=== PATIENT | female | born 1955 | race Caucasian/White ===

== ENCOUNTER 2016-08-02 07:14 | Inpatient (IN) | payer OTHER ==
[2016-08-02] MEDS ORDERED: ONDANSETRON 4 MG/2ML 2 ML VIAL IV ONE (07:15)
[2016-08-02] MEDS ORDERED: FAMOTIDINE 20 MG TABLET PO ONE (07:15)
[2016-08-02] MEDS ORDERED: TRAMADOL HCL 50 MG TABLET PO ONE (07:15)
[2016-08-02] MEDS ORDERED: CELECOXIB 200 MG CAPSULE PO ONE (07:15)
[2016-08-02] MEDS ORDERED: GABAPENTIN 600 MG TABLET PO ONE (07:15)
[2016-08-02] MEDS ORDERED: CLONIDINE HCL 0.1 MG/24 HR (7 DAY PATCH) TD SCH (07:15)
[2016-08-02] MEDS ORDERED: OXYCODONE HCL 10 MG TAB.SR PO ONE ×2 (07:15→08:01)
[2016-08-02] MEDS ORDERED: CEFAZOLIN SODIUM 2 GRAM PREMIX 100 ML IV PRN (07:15)
[2016-08-02] MEDS ORDERED: IV START KIT ONE (07:22)
[2016-08-02] MEDS ORDERED: LACTATED RINGERS 1,000 ML ONE ×2 (07:22→08:41)
[2016-08-02] MEDS ORDERED: GABAPENTIN 600 MG TABLET ONE (08:02)
[2016-08-02] MEDS ORDERED: CLONIDINE HCL 0.1 MG/24 HR (7 DAY PATCH) TD ONE (08:02)
[2016-08-02] MEDS ORDERED: CELECOXIB 200 MG CAPSULE ONE (08:02)
[2016-08-02] MEDS ORDERED: ONDANSETRON 4 MG/2ML 2 ML VIAL ONE (08:02)
[2016-08-02] MEDS ORDERED: FAMOTIDINE 20 MG TABLET ONE (08:02)
[2016-08-02] MEDS ORDERED: TRAMADOL HCL 50 MG TABLET ONE (08:05)
[2016-08-02] MEDS ORDERED: PROPOFOL 20 ML IV ONE ×3 (08:56)
[2016-08-02] MEDS ORDERED: FENTANYL 100 MCG/2 ML VIAL ONE (08:57)
[2016-08-02] MEDS ORDERED: MIDAZOLAM HCL 5 MG/5 ML VIAL ONE (08:57)
[2016-08-02] MEDS ORDERED: BUPIVACAINE 0.25% (MDV) 20 ML in SODIUM CHLORIDE 0.9% FLUSH 20 ML IF PRN (09:10)
[2016-08-02] MEDS ORDERED: TRANEXAMIC ACID 1,000 MG in SODIUM CHLORIDE 0.9% 100 ML IV PRN (09:10)
[2016-08-02] MEDS ORDERED: BUPIVACAINE 0.25% (MDV) 24 ML, MORPHINE SULFATE 8 MG, EPINEPHRINE 0.3 MG in SODIUM CHLO... IF PRN (09:10)
[2016-08-02] MEDS ORDERED: POLYMYXIN B SULFATE 500,000 UNITS, BACITRACIN 25,000 UNITS in SODIUM CHLORIDE 3 L IRRIG... IR PRN (09:10)
[2016-08-02] MEDS ORDERED: ROPIVACAINE 0.5% 30 ML VIAL ONE (09:18)
[2016-08-02] MEDS ORDERED: NERVE BLOCK PROCEDURAL TRAY 1 EACH ONE (09:18)
[2016-08-02] MEDS ORDERED: SPINAL PROCEDURAL TRAY 1 EACH ONE (09:18)
--- NOTE | 2016-08-02 09:39 | HP ---
DATE OF CLINIC: 07/28/2016 DEON CORTEZ : 1955 PLANNED PROCEDURE: Right Total Knee Arthroplasty DATE OF SURGERY: August 02, 2016 SURGEON: Vamshi Pedroza M.D. HISTORY OF PRESENT ILLNESS Deon Cortez is a 61 year old female. * Medication list reviewed with patient allergy list reviewed with patient. * Tried NSAIDS IBUPROFEN PRN * Tried Physical Therapy * Has not tried Injections This is a 60-year-old female who was referred over by Dr. Kaplan for complaints of right knee pain and instability. Patient has a remote history of an ACL injury, treated with a reconstruction in 2005 with an autograft tendon, and then a revision is 2006 to an allograft. She states that even since that time she has had some subjective instability in the knee, as well as some pain with increased-demand activities. She wore a brace and this seemed to help and allow her to do the things that she wanted to do. 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 She does wear a brace part of the time and says that she is some better when she wears the brace, but relates that it is just because she is very much watching her knee to make sure that nothing bad happens to it. She continues to complain of both instability, as well as some mechanical symptoms of the knee and quite a bit of pain that worsens with more activity. Part of the pain seems to be some cramping in her calf and thigh when she tries to do a lot of activity. She has been to physical therapy for just a very limited number of visits and she did some exercises at home, but felt like they were just increasing her pain and not really improving it. She has not taken any anti-inflammatories and she has not had any injections. After discussion and review of treatment options, both operative and non-operative, she has elected to proceed with surgery and presents today preoperatively. CURRENT MEDICATION * Alive Once Daily Womens 50+ Tablet 0 days, 0 refills * Fish Oil 1000 MG Capsule 1 once a day 0 days, 0 refills * Hydrocortisone 2.5 % Ointment as needed 0 days, 0 refills * Ibuprofen 600 MG Tablet three times a day prn only, 30 days, 1 refills * Sertraline HCl 100 MG Tablet TAKE ONE AND ONE-HALF TABLETS BY MOUTH EVERY DAY, 90 days, 1 refills * Synthroid 100 MCG Tablet 1 once a day, 90 days, 3 refills * Triamcinolone Acetonide 0.1 % Cream as needed 0 days, 0 refills PAST MEDICAL/SURGICAL HISTORY Reported: No recent change in medical history. Surgical / Procedural: Arthroscopy Right knee ACL reconstruction ( x2 ) 2005 & 2006. Physical Trauma: Physical trauma. Diagnoses: Hiatal hernia. Hyperlipidemia. Thyroid disorder. Osteoarthritis. Lumbago (CHRONIC). Depression Anxiety disorder NOS past medical/surgical history [use for free text]. Surgical: * Hysterectomy 2008 SOCIAL HISTORY Social history changed. Behavioral: Caffeine use. No tobacco use. Never smoked. Smoking status: Never smoker. Alcohol: Alcohol. Home Environment: Lives with spouse. ALLERGIES * Codeine Derivatives Reaction: makes her shaky and cant sleep * Crestor * Dilaudid Reaction: Nausea/Vomiting/Diarrhea, "can't focus" * Niaspan Reaction: myalgias * Percocet (Intolerance) Reaction: insomnia * Sulfa Drugs Reaction: Skin Rashes/Hives * Vicodin (Intolerance) Reaction: shaky, can't sleep. * Zocor Reaction: affects liver/kidneys. FAMILY HISTORY Family in poor health liver disease, stomach cancer, gestational diabetes self and sisters, diabetes. low thyroid self and sister, high cholesterol self and sister Cancer COLON CANCER: Paternal Grandmother Family history unchanged 1 brother had colitis once....type? Ulcerative colitis brother Hepatic disorders father Pancreatitis nephew Colon cancer Paternal grandmother Thyroid cancer - mother, niece skin cancer - brother, daughter REVIEW OF SYSTEMS No recent constitutional symptoms to include fevers and chills. No recent cardiovascular symptoms to include chest pain or palpitations. No recent respiratory symptoms to include shortness of breath or recent infections. PHYSICAL FINDINGS * Vitals taken 07/28/2016 10:04 am BP-Sitting R 113/76 mmHg Pulse Rate-Sitting 74 bpm Temp-Oral 97.3 F Height 63.5 in Weight 165 lbs Body Mass Index 28.8 kg/m2 Body Surface Area 1.79 m2 Pain Level 3 Ears, Nose, Throat: * ENT: normal. Lungs: * Clear to auscultation. Cardiovascular: Heart Rate and Rhythm: * Normal. Abdomen: * Normal. Neurological: Motor: * Dominant Hand = Right Hand. GENERAL: Patient is a well-developed, well-nourished female in no acute distress. She is awake, alert and conversant throughout the encounter. CARDIOVASCULAR: Intact peripheral pulses on bilateral lower extremities. No significant edema on inspection of bilateral lower extremities. NEUROLOGIC: Patient had intact coordinated composite motion of the bilateral lower extremities and sensation intact to light touch in all distributions of bilateral lower extremities. PSYCHIATRIC: Patient was oriented to person, place and time and displayed appropriate mood and affect during the encounter. SKIN: Exam of the skin on bilateral lower extremities showed no significant scars, lesions, rashes or masses. FOCUSED MUSCULOSKELETAL EXAM: Patient ambulates with relatively normal gait. She has normal resting station of the bilateral hips, knees and ankles. RIGHT LOWER EXTREMITY: Her right knee has a very mild effusion. She has tenderness to palpation along the medial and lateral joint lines, as well as in the posterior portion of the knee, greater lateral than medial. She can go into full extension. She can flex the knee up to about 130 degrees. She has laxity both to varus and valgus stress, although she has firm endpoints on both. She has a significantly positive Jose Alejandro test with about 1.5cm of translation. Same with the anterior drawer, she has 1+cm of translation. She does have a stable posterior drawer. She has a significant pivot-shift without even much pain. She has a mildly positive Blanche's to the medial side of the knee, with pain but no mechanical symptoms. She is able to perform a straight leg raise and has a midline patella. She has 5/5 strength in flexion and extension of the knee. Normal resting tone. Well-perfused leg distally with intact sensation. IMAGING Review of her x-rays shows previous ACL reconstruction, including a couple of screws in the proximal portion of the tibia for fixation on this end, one of which projects almost 1cm past the posterior cortex of her proximal tibia. She has some degenerative changes with a mild varus malalignment and some evidence of early osteoarthritis of the knee. Although there is no severe arthritis, there are some early signs which indicate that she has degenerative changes, especially at the tibial spines in the margins of the lateral compartment. 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 While her primary concern is that she has an unstable knee, this arthritis contributes significantly in terms of treatment options available to her. Her x-rays demonstrate some osteophytes centrally within the notch as well as at the tibial spines, which suggest that an isolated revision ACL reconstruction would stabilize the knee, but would likely lead to increasing pain. Because of this, the best option available for this patient is to undergo a total knee arthroplasty which will address not only her chronic instability, but also address the early arthritis symptoms that she is having and that are demonstrated on her x-rays and exam. PREVIOUS TESTS * Test: CBC NO DIFF Report Date: 07/19/2016 WBC 6.7 10*3/mL MCV 87.7 fL RBC 4.70 10*6/uL MCH 29.4 pg MCHC 33.5 g/dL RDW 12.7 % PLATELET COUNT 263 10*3/mL HCT 41.2 % HGB 13.8 g/L * Test: URINALYSIS WITH MICROSCOPIC Report Date: 07/19/2016 EPITHELIAL CELL 0-1 WBC NEG GLUCOSE NEGATIVE BACTERIA 0 PH,URINE 6.0 SPEC. GRAVITY 1.025 KETONE NEGATIVE NITRITE NEGATIVE RBC 1-3 BLOOD TRACE BILIRUBIN NEGATIVE APPEARANCE CLEAR PROTEIN NEGATIVE COLOR YELLOW LEUK ESTERASE NEGATIVE UROBILINOGEN NORMAL * Test: PROTHROMBIN TIME Report Date: 07/19/2016 PROTIME 9.3 s INR 0.90 * Test: PARTIAL THROMBOPLASTIN TIME Report Date: 07/19/2016 APTT 23.5 s Low * Test: COMPREHENSIVE METABOLIC PANEL Report Date: 07/19/2016 ALT/SGPT 27 U/L ALBUMIN 4.6 g/dL ALB/GLOB RATIO 1.9 BUN 17 mg/dL BUN/CREAT RATIO 21 High CALCIUM 10.0 mg/dL GLUCOSE 96 mg/dL CREATININE 0.8 mg/dL SODIUM 138 meq/L POTASSIUM 3.8 meq/L CHLORIDE 99 meq/L CARBON DIOXIDE 30 meq/L ANION GAP 13 meq/L TOT PROTEIN 7.0 g/dL GLOBULIN 2.4 g/dL BILI,TOTAL 0.4 mg/dL AST/SGOT 26 U/L ALK PHOSPHATASE 89 U/L GFR 74 * Test: MRSA SCREEN Report Date: 07/20/2016 MRSA SCREEN NEGATIVE * Test: MSSA SCREEN Report Date: 07/20/2016 MSSA SCREEN NEGATIVE FOR STAPHYLOCOCCUS AUREUS THERAPY * Patient not eligible for fall risk assessment. PLAN * Unilateral primary osteoarthritis, right knee Physical Therapy: *Other OxyCONTIN 10 MG T12A, Take 1 tablet by mouth every 12 hours for baseline pain control, 10 days, 0 refills OxyCODONE HCl 5 MG TABS, Take 1-2 tablets by mouth every four hours as needed for severe breakthrough pain (6-10/10), 14 days, 0 refills TraMADol HCl 50 MG TABS, Take 1-2 tablets by mouth every 6 hours as needed for moderate breakthrough pain (2-5/10), 14 days, 0 refills * Total knee arthroplasty -Right CARE TEAM Ramonita Hoover MD Surgery Donny Powers MD [facility] SURGICAL CONSENT We have discussed surgical options including right TKA and non-operative management. The patient was counseled in detail regarding the diagnosis, treatment options available, prognosis of each treatment option and the potential risks and complications. The risks of surgery include, but are not limited to, anesthetic , neurovascular complications, pulmonary embolism, deep vein thrombosis, wound dehiscence, failure of any or all of the discussed procedures, infection of the joint or surrounding soft tissue, need for revision surgery, chronic pain, limitations in activities of daily living, inability to return to work, and loss of normal range of motion or functional use of the extremity. There is the possibility of failure over time that may require additional operative or non-operative treatment. The patient acknowledged that there are a number of perioperative risks not mentioned here and would still like to proceed. The patient is aware of and understands these risks, and wishes to proceed with the proposed surgical procedure and other procedures as indicated at the time of surgery. We will have the patient see their PCP for a preoperative medical risk assessment. The preoperative instructions were reviewed with the patient and all questions were answered. PB/sg
[2016-08-02] MEDS ORDERED: ATROPINE SULFATE 0.4 MG/1 ML VIAL IV PRN (10:51)
[2016-08-02] MEDS ORDERED: LABETALOL HCL 5 MG/ML 20ML VIAL IV PRN (10:51)
[2016-08-02] MEDS ORDERED: NALOXONE HCL 0.4 MG/ML VIAL IV PRN (10:51)
[2016-08-02] MEDS ORDERED: MEPERIDINE 25 MG/ML SYRINGE IV PRN (10:51)
[2016-08-02] MEDS ORDERED: PROMETHAZINE HCL 25 MG/ML VIAL IM PRN (10:51)
[2016-08-02] MEDS ORDERED: HYDRALAZINE HCL 20 MG/1 ML VIAL IV PRN (10:51)
[2016-08-02] MEDS ORDERED: FENTANYL 100 MCG/2 ML VIAL IV PRN (10:51)
[2016-08-02] MEDS ORDERED: MORPHINE SULFATE 4 MG/ML SYRINGE IV PRN (10:51)
[2016-08-02] MEDS ORDERED: ONDANSETRON 4 MG/2ML 2 ML VIAL IV PRN ×2 (10:51→13:13)
[2016-08-02] MEDS ORDERED: LACTATED RINGERS 1,000 ML IV SCH (11:00)
--- NOTE | 2016-08-02 12:05 | PCMBPN ---
Brief Post Op Note: Date of Procedure: 08/02/16 Start Time: 1030 Preoperative Diagnosis: 1. right knee osteoarthritis Postoperative Diagnosis: 1. Same Procedure: right total knee arthroplasty Surgeon: Vamshi Pedroza MD Assist: Jed Stephens PA-C Anesthesia: Eladio Suh Findings: as above Condition: stable to PACU Complications: none IV Fluids: 1900 mLs of LR Urine Output: 300 mLs Estimated Blood Loss: 50 mLs Tourniquet Time: 35 minutes at 250 mm Hg Specimens: none Implants: Depuy Attune 4PS Femur / 4RP tibia / 5 mm poly / 35 mm anatomic patella Drains: none Vamshi Pedroza MD
[2016-08-02] MEDS ORDERED: ON-Q PUMP/ROPIVACAINE 0.2% 400 ML in PREMIX BAG 1 EACH NB PRN (12:21)
[2016-08-02] MEDS ORDERED: ON-Q PUMP/ROPIVACAINE 0.2% 450 ML ONE (12:33)
--- NOTE | 2016-08-02 13:04 | RAD ---
Exam: Two-view right knee COMPARISON: 11/25/2015 INDICATION: Postop right knee. FINDINGS: AP and crosstable lateral views of the right knee were obtained. There has been interval removal of the screws from the proximal right tibia as well as total right knee arthroplasty. No pericomponent fracture is identified. Alignment is normal. Skin lev are present. IMPRESSION: Expected postoperative appearance following right total knee arthroplasty and removal of hardware from the proximal right tibia.
[2016-08-02] MEDS ORDERED: HYDROMORPHONE HCL 0.5 MG/0.5 ML SYRINGE IV PRN (13:13)
[2016-08-02] MEDS ORDERED: CALCIUM CARBONATE 500 MG TAB.CHEW PO PRN (13:13)
[2016-08-02] MEDS ORDERED: KETOROLAC TROMETHAMINE 30 MG/ML 1 ML VIAL IV PRN (13:13)
[2016-08-02] MEDS ORDERED: TRAZODONE HCL 50 MG TABLET PO PRN (13:13)
[2016-08-02] MEDS ORDERED: [UNRECOGNIZED DRUG - REMARK] OU PRN (13:13)
[2016-08-02] MEDS ORDERED: TRAMADOL HCL 50 MG TABLET PO PRN (13:13)
[2016-08-02 13:53] VITALS: BMI 27.3
[2016-08-02] MEDS ORDERED: PUMP TUBING ONE (14:28)
[2016-08-02] MEDS: D5 1/2NS with 20 mEq KCL 1,000 ML IV SCH ×2 (14:30→22:36)
[2016-08-02] MEDS: ACETAMINOPHEN 500 MG TABLET PO SCH ×2 (14:31→19:01)
[2016-08-02] MEDS: OXYCODONE HCL 5 MG TABLET PO PRN ×2 (15:48→16:52)
[2016-08-02] MEDS: CEFAZOLIN SODIUM 1 GRAM PREMIX 1 G in Premix (D5W) 50 ml 1 EACH IV SCH (18:17)
[2016-08-02] MEDS: PANTOPRAZOLE 40 MG TABLET DR PO SCH (20:06)
[2016-08-02] MEDS: ASCORBIC ACID 500 MG TABLET PO SCH (20:06)
[2016-08-02] MEDS: DOCUSATE SODIUM 100 MG CAPSULE PO SCH (20:06)
[2016-08-02] MEDS: OXYCODONE HCL 10 MG TAB.SR PO SCH (20:06)
[2016-08-03] MEDS: ACETAMINOPHEN 500 MG TABLET PO SCH ×4 (01:00→18:57)
[2016-08-03] MEDS: D5 1/2NS with 20 mEq KCL 1,000 ML IV SCH ×2 (01:00→07:11)
[2016-08-03] MEDS: CEFAZOLIN SODIUM 1 GRAM PREMIX 1 G in Premix (D5W) 50 ml 1 EACH IV SCH (02:11)
[2016-08-03] MEDS: OXYCODONE HCL 5 MG TABLET PO PRN ×7 (02:11→22:06)
[2016-08-03] MEDS ORDERED: SODIUM CHLORIDE 0.9% 500 ML IV SCH (04:29)
[2016-08-03 06:42] LABS: HEMATOCRIT 32.8 % (37.0-47.0); HEMOGLOBIN 10.6 gm/l (12.0-16.0); MEAN CELL VOLUME 92.9 fl (81.0-99.0); MEAN CORPUSCULAR HGB CONC 32.3 g/dl (33.0-37.0); RED CELL DISTRIBUTION WIDTH 13.4 % (11.5-14.5)
[2016-08-03 07:02] LABS: CALCIUM 8.1 mg/dL (8.6-10.3)
[2016-08-03] MEDS: LEVOTHYROXINE SODIUM 100 MCG TABLET PO SCH (07:11)
[2016-08-03] MEDS ORDERED: REMOVE PATCH 1 EACH UNIT TD SCH (07:15)
--- NOTE | 2016-08-03 08:18 | PDOC43 ---
- Subjective Findings: POD! after Right TKA. No new problems today. Subjective: Reports Pain Tolerable, Denies Chest Pain, Denies Shortness of Breath, Denies Nausea - Objective Vital Signs Temperature 98.4 F 08/03/16 08:01 Pulse Rate 82 08/03/16 08:01 Respiratory Rate 17 08/03/16 08:01 Blood Pressure 94/65 08/03/16 08:01 O2 Saturation by Pulse Oximetry 96 08/03/16 08:01 Oxygen Delivery Method Room Air Oxygen Flow Rate 0 Laboratory 08/03/16 06:00 08/03/16 06:00 08/03/16 06:00 RBC 3.53 L MCHC 32.3 L Calcium 8.1 L Active Medication Orders Category Date Time Status Acetaminophen [Tylenol] Med 08/02/16 13:13 Active 1,000 mg PO Q6HR Ascorbic Acid [Vitamin C] Med 08/02/16 21:00 Active 500 mg PO BID Aspirin (Enteric Coated) [Ecotrin] Med 08/03/16 09:00 Active 325 mg PO DAILY Bisacodyl [Dulcolax] Med 08/05/16 11:55 Active 10 mg [place] DAILY PRN Calcium Carbonate [Tums] Med 08/02/16 13:13 Active 1,000 - 2,000 mg PO Q2H PRN D5 1/2NS with 20 mEq KCL [D51/2NS with 20 mEq KCL] 1, Med 08/02/16 13:13 Active 000 ml IV 125 mls/hr Docusate Sodium [Colace] Med 08/02/16 21:00 Active 100 mg PO BID Hydromorphone HCl [Dilaudid] Med 08/02/16 13:13 Active 0.5 mg IV Q1H PRN Ketorolac Tromethamine [Toradol] Med 08/02/16 13:13 Active 30 mg IV Q6H PRN Ketotifen Fumarate [Allergy Eye Drops] Med 08/02/16 13:13 Pending 1 gtts OU Q8-12H PRN Levothyroxine Sodium [Levothroid] Med 08/03/16 07:30 Active 100 mcg PO QAMAC Magnesium Hydroxide [Milk of Magnesia] Med 08/03/16 11:55 Active 30 ml PO DAILY PRN Multivitamins [One-A-Day] Med 08/03/16 09:00 Active 1 tab PO DAILY On-Q Pump/Ropivacaine 0.2% 400 ml Med 08/02/16 12:21 Active Premix Bag [Premix Fluid] 1 each NB Q50H Ondansetron 4 mg/2ml Vial [Zofran] Med 08/02/16 13:13 Active 4 - 6 mg IV Q6H PRN Oxycodone HCl [Roxicodone] Med 08/02/16 13:13 Active 5 - 10 mg PO Q4H PRN Oxycodone Sr [Oxycontin] Med 08/02/16 21:00 Active 10 mg PO Q12HR Pantoprazole Sodium [Protonix] Med 08/02/16 21:00 Active 40 mg PO BID Remove Patch Med 08/03/16 11:55 Once 1 each TD X1 ONE Sertraline HCl [Zoloft] Med 08/03/16 09:00 Active 150 mg PO DAILY Sodium Chloride 0.9% Flush [Normal Saline 10ml Flush] Med 08/02/16 13:13 Active 10 - 50 ml IV PRN PRN Tramadol HCl [Ultram] Med 08/02/16 13:13 Active 50 mg PO Q6H PRN Trazodone HCl [Desyrel] Med 08/02/16 13:13 Active 25 mg PO BEDTIME PRN Intake and Output 08/01/16 08/02/16 08/03/16 23:59 23:59 23:59 Intake Total 2100 2874 Output Total 2225 1900 Balance -125 974 General: Afebrile Lungs: Normal Air Movement Skin: Normal Color, Warm, Dry - Right Lower Extremity Incision: Dressing Clean/Dry/Intact Motor: Extensor Hallucis Longus: 5/5, Tibialis Anterior: 5/5, Gastrocnemius: 5/5 , Peroneals: 5/5, Quadriceps: 4/5 Gross Sensation to Light Touch: Present: Deep Peroneal Nerve, Superficial Peroneal Nerve, Medial Plantar Nerve, Lateral Plantar Nerve, Sural Nerve, Saphenous Nerve - Problems (1) Status post total right knee replacement Status: Acute - Additional Comments POD1 after Right total knee replacement. No new problems. 1. Physical Therapy: WBAT with FWW. Continue to mobilize, possible discharge home this afternoon. 2. Pain Control: Multimodal pain control as needed. 3. DVT Prophylaxis: ASA 325mg daily. Mobilization. 4. Disposition: Possible discharge home later afternoon today or Sunday. 5. Medical Issues: No new medical problems.
[2016-08-03] MEDS: ASCORBIC ACID 500 MG TABLET PO SCH ×2 (09:38→20:00)
[2016-08-03] MEDS: MULTIVITAMINS 1 TAB TABLET PO SCH (09:38)
[2016-08-03] MEDS: OXYCODONE HCL 10 MG TAB.SR PO SCH ×2 (09:38→20:00)
[2016-08-03] MEDS: SERTRALINE HCL 50 MG TABLET PO SCH (09:38)
[2016-08-03] MEDS: ASPIRIN (ENTERIC COATED) 325 MG TABLET.EC PO SCH (09:38)
[2016-08-03] MEDS: DOCUSATE SODIUM 100 MG CAPSULE PO SCH ×2 (09:38→20:00)
[2016-08-03] MEDS: PANTOPRAZOLE 40 MG TABLET DR PO SCH ×2 (09:38→20:00)
[2016-08-03] MEDS: REMOVE PATCH 1 EACH UNIT TD ONE ×2 (11:26→11:56)
[2016-08-03] MEDS ORDERED: MAGNESIUM HYDROXIDE 30 ML UDCUP PO PRN (11:55)
[2016-08-04] MEDS: ACETAMINOPHEN 500 MG TABLET PO SCH ×2 (00:02→05:47)
[2016-08-04] MEDS: OXYCODONE HCL 5 MG TABLET PO PRN ×3 (02:13→09:00)
[2016-08-04 05:55] LABS: HEMATOCRIT 29.2 % (37.0-47.0); HEMOGLOBIN 9.5 gm/l (12.0-16.0)
[2016-08-04 07:21] VITALS: BP 94/62
[2016-08-04] MEDS: LEVOTHYROXINE SODIUM 100 MCG TABLET PO SCH (07:43)
--- NOTE | 2016-08-04 08:48 | PDOC43 ---
- Subjective Findings: Patient doing very well this morning, slept well, no new complaints, no events overnight. Subjective: Reports Flatus, Reports Pain Tolerable, Denies Chest Pain, Denies Shortness of Breath, Denies Nausea, Denies Vomiting, Denies Fever - Objective Vital Signs Temperature 98.6 F 08/04/16 07:20 Pulse Rate 85 08/04/16 07:20 Respiratory Rate 16 08/04/16 07:20 Blood Pressure 94/62 08/04/16 07:20 O2 Saturation by Pulse Oximetry 93 08/04/16 07:20 Oxygen Delivery Method Room Air Oxygen Flow Rate 0 Laboratory 08/04/16 05:30 08/03/16 06:00 Active Medication Orders Category Date Time Status Acetaminophen [Tylenol] Med 08/02/16 13:13 Active 1,000 mg PO Q6HR Ascorbic Acid [Vitamin C] Med 08/02/16 21:00 Active 500 mg PO BID Aspirin (Enteric Coated) [Ecotrin] Med 08/03/16 09:00 Active 325 mg PO DAILY Bisacodyl [Dulcolax] Med 08/05/16 11:55 Active 10 mg [place] DAILY PRN Calcium Carbonate [Tums] Med 08/02/16 13:13 Active 1,000 - 2,000 mg PO Q2H PRN Docusate Sodium [Colace] Med 08/02/16 21:00 Active 100 mg PO BID Hydromorphone HCl [Dilaudid] Med 08/02/16 13:13 Active 0.5 mg IV Q1H PRN Ketotifen Fumarate [Allergy Eye Drops] Med 08/02/16 13:13 Active 1 gtts OU Q8-12H PRN Levothyroxine Sodium [Levothroid] Med 08/03/16 07:30 Active 100 mcg PO QAMAC Magnesium Hydroxide [Milk of Magnesia] Med 08/03/16 11:55 Active 30 ml PO DAILY PRN Multivitamins [One-A-Day] Med 08/03/16 09:00 Active 1 tab PO DAILY Ondansetron 4 mg/2ml Vial [Zofran] Med 08/02/16 13:13 Active 4 - 6 mg IV Q6H PRN Oxycodone HCl [Roxicodone] Med 08/03/16 13:37 Active 5 - 10 mg PO Q3H PRN Oxycodone Sr [Oxycontin] Med 08/02/16 21:00 Active 10 mg PO Q12HR Pantoprazole Sodium [Protonix] Med 08/02/16 21:00 Active 40 mg PO BID Sertraline HCl [Zoloft] Med 08/03/16 09:00 Active 150 mg PO DAILY Sodium Chloride 0.9% Flush [Normal Saline 10ml Flush] Med 08/02/16 13:13 Active 10 - 50 ml IV PRN PRN Tramadol HCl [Ultram] Med 08/02/16 13:13 Active 50 mg PO Q6H PRN Trazodone HCl [Desyrel] Med 08/02/16 13:13 Active 25 mg PO BEDTIME PRN Intake and Output 08/02/16 08/03/16 08/04/16 23:59 23:59 23:59 Intake Total 2100 6572 1850 Output Total 2225 4350 2150 Balance -125 2222 -300 General: Afebrile, No Acute Distress HEENT: Atraumatic, EOMI Lungs: Normal Air Movement Abdomen: Soft, No Tenderness Skin: Normal Color, Warm, Dry, Intact Neurological: Grossly Intact, Alert, Oriented x 4, Normal Speech Psych/Mental Status: Normal Affect, Normal Mood - Right Lower Extremity Incision: Dressing Clean/Dry/Intact, Ecchymosis, Well Approximated, Kush Intact, No Drainage, No Erythema, No Rash Motor: Extensor Hallucis Longus: 5/5, Tibialis Anterior: 5/5, Gastrocnemius: 5/5 , Peroneals: 5/5, Quadriceps: 5/5 Gross Sensation to Light Touch: Present: Deep Peroneal Nerve, Superficial Peroneal Nerve, Medial Plantar Nerve, Lateral Plantar Nerve, Sural Nerve, Saphenous Nerve Capillary Refill: < 3 Seconds - Problems (1) Status post total right knee replacement Status: Acute - Additional Comments POD2 after Right total knee replacement. No new problems. 1. Physical Therapy: WBAT with FWW. Continue to mobilize per protocol 2. Pain Control: Multimodal pain control as needed, shortened interval on Oxycodone to Q3 with improved control. 3. DVT Prophylaxis: ASA 325mg daily. Mobilization. 4. Disposition: Discharge home this AM after PT. 5. Medical Issues: No new medical problems. Stable vitals. Vamshi Pedroza MD
--- NOTE | 2016-08-04 08:49 | PDOC5 ---
ADMIT DATE: 08/02/16 DISCHARGE DATE: 08/04/16 ADMISSION DIAGNOSES: Right Knee Osteoarthritis PROCEDURES PERFORMED THIS HOSPITALIZATION: Right TKA SURGEON:Vamshi Pedroza MD CONSULTATIONS: PT/OT/Care Management BRIEF HISTORY:This is a 61 year old female with activity-limiting Right knee arthritis which has failed to respond adequately to a course of nonoperative measures. After a discussion of the risks, benefits, and alternatives of ongoing therapies, patient elected to proceed with Right TKA. The patient underwent standard preoperative clearance and education, and presented to the hospital on the scheduled date for surgery. BRIEF HOSPITAL COURSE: Patient tolerated the procedure without complication and was admitted postoperatively for observation, pain control, and rehabilitation. Patient had an uncomplicated hospital course; see daily notes for details. On POD#2 patient met all criteria for discharge and was discharged home with family assistance. Follow-up appointments for outpatient Physical Therapy and Orthopedics were provided at the time of discharge. Patient restarted preoperative medications, and received prescriptions for postoperative pain medications, a stool softener, and DVT prophylaxis. Vamshi Pedroza MD - Discharge Diagnosis (1) Status post total right knee replacement Status: Acute - Discharge Plan Additional Instructions: PROCEDURE: Right total knee arthroplasty (replacement) 1.) Dressings: may remove dressings on POD#4 and shower normally, let water run over incision and pat dry, but do not submerge or scrub incision. Cover with clean dressing and then change dressing every 2 days until completely dry. 2.) Activity: may bear weight as tolerated with assistive device as needed. Outpatient PT as previously scheduled. Daily exercises as instructed by PT. 3.) Medications: a.) Oxycontin: long-acting pain medication taken morning and evening for 10 days, no refills b.) Tramadol: as-needed pain medication for mild to moderate breakthrough pain (call for refills 3-4 days before running out) c.) Oxycodone: as-needed pain medication for severe breakthrough pain (call for refills 3-4 days before running out) d.) Aspirin: blood thinner to reduce risk of clots, 325 mg taken daily for 30 days e.) Colace: stool softener to help prevent constipation, taken twice a day as long as you are on narcotics; if you have not had a bowel movement by Sunday , get [id number] Magnesium Citrate from [employer] or [facility], and use per instructions twice a day until constipation resolves. 4.) Followup: Sunday, Aug 14 at 10:30am with my PA, Jed Stephens at [facility]. Call [phone] to confirm time and location of appointment. 5.) Questions: call my office with any questions or concerns. Go to ED or call 911 for any acute changes in health status or emergencies. Vamshi Pedroza MD
[2016-08-04] MEDS: ASPIRIN (ENTERIC COATED) 325 MG TABLET.EC PO SCH (08:59)
[2016-08-04] MEDS: SERTRALINE HCL 50 MG TABLET PO SCH (08:59)
[2016-08-04] MEDS: ASCORBIC ACID 500 MG TABLET PO SCH (08:59)
[2016-08-04] MEDS: PANTOPRAZOLE 40 MG TABLET DR PO SCH (09:00)
[2016-08-04] MEDS: DOCUSATE SODIUM 100 MG CAPSULE PO SCH (09:00)
[2016-08-04] MEDS: MULTIVITAMINS 1 TAB TABLET PO SCH (09:00)
[2016-08-04] MEDS: OXYCODONE HCL 10 MG TAB.SR PO SCH (09:00)
[2016-08-05] MEDS ORDERED: BISACODYL 10 MG SUP PR PRN (11:55)
--- NOTE | 2016-08-07 11:30 | OP ---
DEON LEAL : 1955 [id number] DATE OF SURGERY: August 02, 2016 PREOPERATIVE DIAGNOSIS: Right knee osteoarthritis. POSTOPERATIVE DIAGNOSIS: Right knee osteoarthritis. PROCEDURE PERFORMED: RIGHT TOTAL KNEE ARTHROPLASTY. SURGEON: Vamshi Pedroza M.D. RETAIL MERCHANDISING SPECIALIST: Benjamín Stephens P.A.-C. SPECIMENS: No material was sent to the laboratory. ESTIMATED BLOOD LOSS: 50 mL. INTRAVENOUS FLUIDS: 1900 mL of crystalloid. URINE OUTPUT: 300 mL. TOURNIQUET TIME: 35 minutes at 300 mmHg. IMPLANTS: DePuy Attune size 4 posterior stabilized femur, size 4 rotating platform tibia, a 5 mm poly and a 35 mm anatomic patella. DRAINS: No drains. INDICATIONS: This is 61-year-old female with history and physical exam and radiographic findings consistent with right knee osteoarthritis. The patient has undergone a course of nonoperative measures without adequate relief of their symptoms. They desire definitive management in the form of a total knee arthroplasty. Risks, benefits and alternatives were discussed at length with the patient and they have elected to proceed. Preoperative clearances were performed and the patient was scheduled for surgery at the first available convenience. DESCRIPTION OF PROCEDURE: The patient was identified in the preoperative holding area where they were marked with indelible marker by the operating surgeon. The patient underwent ultrasound guided adductor canal block by the anesthesia provider. Patient was then taken to the operating room where they underwent a spinal anesthetic and was positioned supine on the operating room table. All bony prominences were padded and a well padded pre-calibrated nonsterile tourniquet was placed on the right upper thigh. Patient received perioperative antibiotics. The patient was prepped and draped in the usual sterile fashion for surgery. An operative time out was performed and confirmed by all members of the operative team. The leg was elevated and exsanguinated using an Esmarch bandage and the tourniquet was inflated at 300 mmHg. A standard anterior approach to the knee was utilized. Dissection was carried down to the fascia overlying the quadriceps and patellar tendons. A medial peripatellar arthrotomy was created. The infrapatellar and suprapatellar fat pads were excised along with medial and lateral menisci and the ACL and PCL. At this point the tourniquet was deflated. Retractors were placed to protect the collateral ligaments and the patella was slid laterally. The TruMatch guide for the femur was brought onto the field and pinned in place. This was exchanged for our distal femoral cut block. We confirmed our resection levels and then made the resection with an oscillating saw. The knee was hyperflexed and the Tarlow retractor was placed to deliver the tibia from under the femur. The TruMatch guide for the tibia was placed. Alignment was double checked with a set of drop rods. The guide was pinned in place and then exchanged for the proximal tibial cut guide. The resection level was again confirmed and the proximal tibial resection was made with an oscillating saw and completed with an osteotome and the proximal tibial resection piece was excised from the knee. At this point the retractors were removed and the knee was taken into extension and our extension block was checked and found to be satisfactory with a 5 mm irene. We returned our attention to the femur, pinning the 4-in-[address] using the previously drilled pins from the TruMatch guide. We double checked our alignment here as well as our flexion space and we were satisfied with the position of the block. Anterior, posterior and chamfer cuts were made and all bony pieces were excised. The knee was taken into hyperflexion and posterior osteophytes were removed using an osteotome and a curette. Finally, the tibia was sized with a base plate, drilled and punched and then a trial tibia was placed. The box cut guide for the femur was pinned in place and our box cut for the posterior stabilized femoral component was made and then a trial femur was placed. The trial 6 mm insert was placed and the knee was taken through a range of motion. It was found to be stable in all planes and to have appropriate extension and flexion. The patella was everted and held with two towel clips. Its thickness was measured to 26 mm initially. It was resected back using a freehand technique to 14 mm thick and sized for a 35 mm patellar button. The peg holes were drilled and a trial patella was placed. The knee was taken through a range of motion. The patella was found to track midline with a no hands technique. At this point all trial implants were removed from the knee. The posterior capsule was inspected and it was confirmed that there were no significant bleeders. Then knee was elevated and exsanguinated using an Esmarch bandage and the tourniquet was reinflated. Cement was mixed on the back table while we performed our first posterior capsular injection and then copiously irrigated the bony surfaces with sterile saline. Our final implants were cemented in place and all excess cement was removed from the knee. The knee was held in extension with a clamp on the patella while the cement dried. A final inspection was made of the knee after the cement was dry and the tourniquet was deflated. There were no significant bleeders and no residual cement or bony bodies within the knee. The knee was once again copiously irrigated with sterile saline and then a closure was performed using #0 Quill for the capsule, #2-0 Vicryl for the subcutaneous tissues and lev in the skin. A sterile dressing of Xeroform, fluffs, ABD's, web roll and an RYAN bandage was applied. The drapes were removed. The patient was awakened from anesthesia. Patient was then transferred to a stretcher and taken postoperatively to the post anesthesia care unit in stable condition. There were no observed intraoperative complications during this procedure. Job [id number] Cc: Omaharamin Barfield
== END 2016-08-04 11:10 | disposition home or self-care (01) | DRG 470 ==
LOC: OR 07:14 → MS 13:40
PROVIDERS: ADMIT Orthopaedic Surgery; ATTEND Orthopaedic Surgery
PROC: 0SRC0J9 Replacement of Right Knee Joint with Synthetic Substitute, Cemented, Open Approach (ICD-10-PCS; principal; 2016-08-02)
DX: M17.11 Unilateral primary osteoarthritis, right knee (principal); M23.51 Chronic instability of knee, right knee; M17.31 Unilateral post-traumatic osteoarthritis, right knee; M25.761 Osteophyte, right knee; E07.9 Disorder of thyroid, unspecified; E78.5 Hyperlipidemia, unspecified; M54.5 Low back pain; F32.9 Major depressive disorder, single episode, unspecified; F41.9 Anxiety disorder, unspecified; Z88.2 Allergy status to sulfonamides; Z88.5 Allergy status to narcotic agent; Z88.8 Allergy status to other drugs, medicaments and biological substances